=== PATIENT | male | born 1990 | race African-American/Black ===

== ENCOUNTER 2017-06-08 08:41 | Day surgery (SDC) | payer OTHER ==
[2017-06-08] MEDS ORDERED: LACTATED RINGERS 1,000 ML IV ONE (08:50)
[2017-06-08] MEDS ORDERED: LIDOCAINE 1% 50 ML MDV SUBQ ONE ×2 (09:37→10:11)
[2017-06-08] MEDS ORDERED: BUPIVACAINE 0.5%-EPI 1:200000 PF 30 ML VIAL SUBQ ONE ×2 (09:38→10:11)
[2017-06-08 10:52] VITALS: BP 138/87
--- NOTE | 2017-06-08 11:46 | OPERATIVE REPORT ---
DATE OF SURGERY: 06/08/2017 00:00:00 PRE-PROCEDURE DIAGNOSIS: [place] pile/anal skin tag. POST-PROCEDURE DIAGNOSIS: [place] pile/anal skin tag. PROCEDURE: Excision of sentinel pile/anal skin tag. OPERATING SURGEON: Sid Manning MD. ANESTHESIA: General. INDICATION FOR PROCEDURE: The patient is a 27-year-old male who has had a history of rectal bleeding along with pain. This improved and went away several years. He now has noticed a swelling being prese nt in the anal region. On physical exam, it looks like he had a previous anal fissure that is not hea led with the sentinel pile coming off of the side of the fissure. FINDINGS AT SURGERY: The patient had an anal skin tag that excised. PROCEDURE: After informed consent was obtained, the patient was taken to the operating room and place d in the supine position. General laryngeal anesthesia was administered. The patient's anal area was then prepped and draped in the usual sterile fashion. A knife was then used to excise the anal skin t ag at its base. Hemostasis was obtained using electrocautery, and 1% lidocaine with .25% Marcaine had been injected prior to making the incision. Neosporin was then applied. A dry dressing was applied t o the surgical site. The patient was then taken out of the lithology position, awakened, extubated, a nd taken from the operating room in stable condition. ESTIMATED BLOOD LOSS: Minimal. COMPLICATIONS: None. CONDITION OF THE PATIENT AT THE END OF THE PROCEDURE: Stable. SPECIMEN: Anal skin tag. DRAINS OR PACKS: None. CLASSIFICATION OF THE WOUND: Clean, contaminated. JOB #: [id number] EXT JOB #:[id number]
== END 2017-06-08 08:42 | disposition home or self-care (01) ==
LOC: SDS 08:41
PROVIDERS: ATTEND Surgery
PROC: 0DBQXZZ Excision of Anus, External Approach (ICD-10-PCS; principal; 2017-06-08 09:45)
DX: K64.4 Residual hemorrhoidal skin tags (principal)
CPT/HCPCS: 46230; J7120

== ENCOUNTER 2017-08-28 01:39 | Emergency (ER) | payer OTHER ==
[2017-08-28 01:48] VITALS: BP 151/91
--- NOTE | 2017-08-28 02:54 | ED Physician Documentation ---
PD HPI HEENT - Stated complaint Stated Complaint: THROAT SWELLING - Chief complaint Chief Complaint: Heent - History obtained from History obtained from: Patient - History of Present Illness Timing - onset: Yesterday Timing - details: Gradual onset, Constant Pain level now: 8 Location: Right ear, Throat Improves: Nothing Worsens: Swalllowing Associated symptoms: Headache. No: Fever Similar symptoms before: Has not had sx before Recently seen: Not recently seen - Additional information Additional information: c/o 1-2 days of sore throat, right ear pain and right-sided headache Review of Systems Constitutional: denies: Fever, Chills, Sweats Throat: reports: Sore throat Respiratory: denies: Dyspnea, Cough PD PAST MEDICAL HISTORY - Past Medical History Cardiovascular: None Respiratory: None Neuro: None Endocrine/Autoimmune: None GI: None : None HEENT: None Psych: None Musculoskeletal: None Derm: None - Past Surgical History Past Surgical History: No - Present Medications Home Medications: Ambulatory Orders Medication Instructions Recorded Confirmed Multivitamin [Multivitamins] 1 each PO DAILY 06/07/17 06/07/17 HYDROcod/ACETAM 5/325 [[place] 5/325] 1 - 2 ea PO Q6H PRN #15 tablet 08/28/17 - Allergies Allergies/Adverse Reactions: Allergies Allergy/AdvReac Type Severity Reaction Status Date / Time hydromorphone [From Dilaudid] Allergy Anaphylaxis Verified 08/28/17 01:49 nickel Allergy Rash Verified 06/07/17 12:48 - Social History Does the pt smoke?: No Smoking Status: Never smoker Does the pt drink ETOH?: Yes Does the pt have substance abuse?: No - Immunizations Immunizations are current?: Yes - POLST Patient has POLST: No PD ED PE NORMAL - Vitals Vital signs reviewed: Yes - General General: Alert and oriented X 3, No acute distress, Well developed/nourished - HEENT HEENT: Ears normal, Moist mucous membranes - Neck Neck: Supple, no meningeal sign - Respiratory Respiratory: No respiratory distress, Clear bilaterally PD ED PE EXPANDED - HEENT HEENT: Pharyngeal erythema, Tonsillar exudate Results - Vitals Vitals: Vital Signs - 24 hr 08/28/17 01:44 Heart Rate 94 Respiratory 18 Rate Blood Pressure 151/91 H O2 Saturation 97 Oxygen O2 Source Nasal cannula - Labs Labs: Laboratory Tests 08/28/17 03:08 Group A Strep Rapid Negative PD MEDICAL DECISION MAKING - ED course Complexity details: reviewed results, re-evaluated patient, considered differential, d/w patient Departure - Departure Disposition: 01 Home, Self Care Clinical Impression: Pharyngitis Condition: Good Instructions: ED Pharyngitis Viral Report Pending Follow-Up: AUTUMN CADENA [Primary Care Provider] - (2-3 days if not improving) Prescriptions: HYDROcod/ACETAM 5/325 [[place] 5/325] 1 - 2 ea PO Q6H PRN #15 tablet PRN Reason: Pain Forms: Activity restrictions Discharge Date/Time: 08/28/17 03:54
[2017-08-28 03:16] LABS: RAPID STREP SCREEN REAGENT QC YELLOW (YELLOW)
[2017-08-28] MEDS ORDERED: DEXAMETHASONE 10 MG/ML VIAL PO STA (03:38)
[2017-08-28] MEDS ORDERED: HYDROcod/ACETAM 5/325 MG TABLET PO STA (03:38)
[2017-08-28] MEDS ORDERED: DEXAMETHASONE 10 MG/ML VIAL ONE (03:46)
[2017-08-28] MEDS ORDERED: CHERRY SYRUP 10 ML UDC PO ONE (03:46)
[2017-08-28] MEDS ORDERED: HYDROcod/ACETAM 5/325 MG TABLET ONE (03:46)
== END 2017-08-28 03:54 | disposition home or self-care (01) ==
LOC: ED 01:39
DX: J02.9 Acute pharyngitis, unspecified (principal)
CPT/HCPCS: 36415; 87070; 87430; 99283; A9270

== ENCOUNTER 2018-07-11 16:25 | Emergency (ER) | payer OTHER ==
[2018-07-11] MEDS ORDERED: DOXYCYCLINE 100 MG TABLET PO STA (16:56)
[2018-07-11] MEDS ORDERED: ACETAMINOPHEN 325 MG TABLET PO STA (16:56)
[2018-07-11] MEDS ORDERED: NAPROXEN 250 MG TABLET PO STA (16:56)
--- NOTE | 2018-07-11 17:59 | ED Physician Documentation ---
PD HPI LOWER EXT INJURY - Stated complaint Stated Complaint: LEG PX - Chief complaint Chief Complaint: Ext Problem - History obtained from History obtained from: Patient - History of Present Illness PD HPI LOW EXT INJURY LOCATION: Right, Thigh Type of injury: No: Fall, Twist Where injury occurred: Work Timing - onset: How many months ago (initially with tender lump medial thigh a month ago without injury. It has gotten bigger and the lump feeling has extended proximally just under the skin. Had U/S showing solid, not fluid. Is getting referral for MRI. The past few days is having some redness and warmth to the area.) Timing - duration: Months (1) Timing - details: Gradual onset, Still present Worsened by: Moving (walking and pressure on the area hurts.), Palpating Associated symptoms: Swelling, Discolored (redness just the past few days). No : Weakness, Numbness Contributing factors: No: Anticoagulated Similar symptoms before: Has not had sx before (not prior to this past month) Recently seen: Clinic (last week about this, with U/S again without fluid.) Review of Systems Constitutional: denies: Fever, Chills, Myalgias Cardiac: denies: Chest pain / pressure, Palpitations Respiratory: denies: Dyspnea, Cough GI: denies: Nausea, Vomiting Skin: denies: Rash, Lesions Neurologic: denies: Focal weakness, Numbness Endocrine: denies: Weight loss PD PAST MEDICAL HISTORY - Past Medical History Past Medical History: No Cardiovascular: None Respiratory: None Endocrine/Autoimmune: None GI: None : None HEENT: None Psych: None Musculoskeletal: None Derm: None - Past Surgical History Past Surgical History: No - Present Medications Home Medications: Ambulatory Orders Medication Instructions Recorded Confirmed Multivitamin [Multivitamins] 1 each PO DAILY 06/07/17 06/07/17 Doxycycline Monohydrate 100 mg PO BID #14 tablet 07/11/18 HYDROcod/ACETAM 5/325 [[place] 5/325] 1 tab PO Q6H PRN #15 tablet 07/11/18 Naproxen 375 mg PO BID #20 tablet 07/11/18 - Allergies Allergies/Adverse Reactions: Allergies Allergy/AdvReac Type Severity Reaction Status Date / Time hydromorphone [From Dilaudid] Allergy Anaphylaxis Verified 07/11/18 16:42 nickel Allergy Rash Verified 07/11/18 16:42 - Social History Does the pt smoke?: No Smoking Status: Never smoker Does the pt drink ETOH?: Yes Does the pt have substance abuse?: No - Immunizations Immunizations are current?: Yes - POLST Patient has POLST: No PD ED PE NORMAL - Vitals Vital signs reviewed: Yes - General General: Alert and oriented X 3, No acute distress, Well developed/nourished - Respiratory Respiratory: Clear bilaterally - Abdomen Abdomen: Soft, Non tender - Derm Derm: Normal color, Warm and dry, Other (right medial thigh with 4-5 cm area of redness and some warmth, with slight purplish coloring toward the center. There are not any skin lesions. Underlying the skin is lumpy firm tissue in 3-4 lumps that area tender. They are moveable from the muscle layer. No fluctuance. Feel somewhat like lipomas though tender. Bedside U/S did not show any fluid collections. Medial thigh vein with good flow and is compressible. ) - Extremities Extremities: No deformity, No edema, No calf tenderness / cord Results - Vitals Vitals: Oxygen O2 Source Room air - Rads (name of study) extremity CT Radiology: Prelim report reviewed PD MEDICAL DECISION MAKING - ED course Complexity details: considered differential (interesting progression of what feels like lipoma, now with redness and worse tenderness. Awaiting referral for MRI. Consider CT for preliminary info, though MRI is likely still going to be useful. Can at least exclude significant underlying extension/other process. ), d/w patient - Sepsis Event Vital Signs: Oxygen O2 Source Room air Departure - Departure Disposition: 01 Home, Self Care Clinical Impression: Lump of right thigh, Cellulitis of thigh Condition: Stable Record reviewed to determine appropriate education?: Yes Instructions: ED Infec Skin Cellulitis Follow-Up: AUTUMN CADENA [Primary Care Provider] - Prescriptions: Doxycycline Monohydrate 100 mg PO BID #14 tablet HYDROcod/ACETAM 5/325 [[place] 5/325] 1 tab PO Q6H PRN #15 tablet PRN Reason: Pain Naproxen 375 mg PO BID #20 tablet Comments: The CT scan just characterized it as soft tissue thickening and edema in that area. The underlying tissue of bone and muscle appeared normal. They did suggest MRI may be more definitive. There are no deeper abscesses or fluid collections seen. At this point it feels like fatty tissue thickening such as a lipoma. Sometimes those can have infection and I think that is the discoloration and warmth of it now. We will treated with some anti- inflammatories and add Tylenol or hydrocodone if needed for pain. I would go with doxycycline antibiotic for the new discoloration that feels like a skin infection. Follow-up with your primary care regarding further characterization , such as MRI or biopsy, of the lumps under the skin. Forms: Activity restrictions Discharge Date/Time: 07/11/18 18:38
--- NOTE | 2018-07-11 18:07 | CT Report ---
Reason: right medial thigh soft tissue lump/tender Procedure Date: 07/11/2018 Accession Number: [id number] / [id number] Procedure: CT - Lower Extremity Right W/O CPT Code: FULL RESULT: EXAM: RIGHT LOWER EXTREMITY CT WITHOUT CONTRAST EXAM DATE: 07/11/2018 05:43 PM. CLINICAL HISTORY: Right medial thigh soft tissue lump/tender. COMPARISON: None. TECHNIQUE: Thin-section axial images were acquired of the lower extremity from the mid-to distal femoral diaphysisto the proximal tibial metaphysis without contrast. Post-processing: Coronal and sagittal reformats. Other: None. In accordance with CT protocol optimization, one or more of the following dose reduction techniques were utilized for this exam: automated exposure control, adjustment of mA and/or KV based on patient size, or use of iterative reconstructive technique. FINDINGS: Bones: No fracture or bone lesion. Joints: Joint spaces at the knee maintained. Mild lateral patellar subluxation. Minimal joint fluid. Musculature: No fatty atrophy. Evaluation for muscle edema limited on CT. Other: Mild subcutaneous edema over the medial aspect distal thigh and knee. Mild skin thickening present at the level of the distal thigh. Mild subcutaneous edema over the anterior aspect of the patella and patellar tendon. Evaluation for fluid collection or mass significantly limited in the absence of IV contrast. IMPRESSION: 1. Mild subcutaneous edema over the medial aspect distal thigh and knee with mild skin thickening, nonspecific. 2. Significantly limited evaluation for fluid collection or mass in the absence of IV contrast. 3. If it would be of clinical utility, MRI with IV contrast could be performed for further characterization. [facility]
[2018-07-11 18:38] VITALS: BP 118/74
== END 2018-07-11 18:38 | disposition home or self-care (01) ==
LOC: ED 16:25
DX: R22.41 Localized swelling, mass and lump, right lower limb (principal); L03.115 Cellulitis of right lower limb
CPT/HCPCS: 73700; 99283; A9270

== ENCOUNTER 2018-09-12 08:45 | Emergency (ER) | payer OTHER ==
[2018-09-12] MEDS ORDERED: IBUPROFEN 800 MG TABLET PO STA (09:57)
--- NOTE | 2018-09-12 10:01 | ED Physician Documentation ---
History of Present Illness - Stated complaint Stated Complaint: MALE - Chief complaint Chief Complaint: Abd Pain - Additonal information Additional information: hx from pt 28 AD male same sex partner to ED with first left now kimberly testicular pain waxing waning but pretty much always there for a month and suprapubic discomfort as well no dysuria but hesitancy no dc no lesions no fever chills Review of Systems Constitutional: denies: Fever, Chills Cardiac: denies: Chest pain / pressure Respiratory: denies: Dyspnea GI: reports: Abdominal Pain : reports: Hesitancy, Testicular pain. denies: Discharge Endocrine: denies: Easy bruising / bleeding Immunocompromised: denies: Immunocompromised PD PAST MEDICAL HISTORY - Past Medical History Cardiovascular: None Respiratory: None Endocrine/Autoimmune: None GI: None : None HEENT: None Psych: None Musculoskeletal: None Derm: None - Past Surgical History Past Surgical History: No - Present Medications Home Medications: Ambulatory Orders Medication Instructions Recorded Confirmed Multivitamin [Multivitamins] 1 each PO DAILY 06/07/17 06/07/17 Doxycycline Hyclate 100 mg PO BID #20 capsule 09/12/18 - Allergies Allergies/Adverse Reactions: Allergies Allergy/AdvReac Type Severity Reaction Status Date / Time hydromorphone [From Dilaudid] Allergy Anaphylaxis Verified 09/12/18 08:54 nickel Allergy Rash Verified 09/12/18 08:54 - Social History Does the pt smoke?: No Smoking Status: Never smoker Does the pt drink ETOH?: Yes Does the pt have substance abuse?: No - Immunizations Immunizations are current?: Yes - POLST Patient has POLST: No PD ED PE NORMAL - Vitals Vital signs reviewed: Yes - Cardiac Cardiac: RRR - Respiratory Respiratory: No respiratory distress, Clear bilaterally - Abdomen Abdomen: Soft, Other (suprapubic TTP s peritineal signs, no focal RLQ pain or TTP) - Male Male : Other (circ, testes desc nl lie, + cremasteric, no mass, kimberly mildly and diffusely TTP, no lesions, no dc, pt very fearful of STD swab but after I explained the importance and promised to be as quick and gentle and possible he agreed and allowed swab to be done) - Derm Derm: Normal color Results - Vitals Vitals: Vital Signs - 24 hr 09/12/18 09/12/18 08:52 12:12 Temperature 36.0 C L 36.5 C Heart Rate 88 76 Respiratory 15 18 Rate Blood Pressure 145/99 H 132/98 H O2 Saturation 98 100 Oxygen O2 Source Room air - Labs Labs: Laboratory Tests 09/12/18 09:50 Urine Color YELLOW Urine Clarity CLEAR Urine pH 7.5 Ur Specific [place] 1.020 Urine Protein NEGATIVE Urine Glucose (UA) NEGATIVE Urine Ketones NEGATIVE Urine Occult Blood NEGATIVE Urine Nitrite NEGATIVE Urine Bilirubin NEGATIVE Urine Urobilinogen 0.2 (NORMAL) Ur Leukocyte Esterase NEGATIVE Ur Microscopic Review NOT INDICATED Urine Culture Comments NOT INDICATED - Rads (name of study) abd sono Radiology: See rad report (no evidence of appendicitis) bladder Radiology: See rad report (nl jets, no stones, nl prostate) testicular Radiology: See rad report (L varicocele, otherwise nl) Departure - Departure Disposition: 01 Home, Self Care Clinical Impression: Orchitis Condition: Good Instructions: ED Orchitis Prescriptions: Doxycycline Hyclate 100 mg PO BID #20 capsule Comments: There was no urine infection The ultrasounds were reassuring - no appendicitis, normal bladder without stones, normal prostate, and normal testicles without tumors, abscess or impaired blood flow. I recommend a course of antibiotics to cover common urinary and testicular infections. The culture results will take several days to be resulted - you can call the ER for the results or get the results from your PMD at [facility] and supportive briefs "tight whities" and cool compresses will help ease the pain Forms: Activity restrictions Discharge Date/Time: 09/12/18 13:26
[2018-09-12 10:20] LABS: BILIRUBIN,URINE NEGATIVE (NEGATIVE); GLUCOSE, URINE (UA) NEGATIVE (NEGATIVE); KETONES,URINE (UA) NEGATIVE (NEGATIVE); LEUKOCYTE ESTERASE, URINE NEGATIVE (NEGATIVE); NITRITE,URINE NEGATIVE (NEGATIVE); OCCULT BLOOD,URINE NEGATIVE (NEGATIVE); PH,URINE 7.5 PH (5.0-7.5); PROTEIN,URINE NEGATIVE (NEGATIVE); UROBILINOGEN,URINE 0.2 (NORMAL) E.U./dL (NORMAL)
[2018-09-12 10:22] LABS: CLARITY,URINE CLEAR (CLEAR)
--- NOTE | 2018-09-12 12:08 | Ultrasound Report ---
Reason: rlq and bladder please Procedure Date: 09/12/2018 Accession Number: [id number] / [id number] Procedure: US - Abdomen Limited CPT Code: FULL RESULT: EXAM: ABDOMEN ULTRASOUND LIMITED EXAM DATE: 09/12/2018 11:50 AM. CLINICAL HISTORY: Right lower quadrant pain COMPARISON: None. TECHNIQUE: Real-time scanning was performed of the right lower quadrant with static images obtained. FINDINGS: The appendix is not seen. No cystic or solid mass, abnormal collections, free fluid, or thickened bowel wall seen. IMPRESSION: Negative right lower quadrant ultrasound. The appendix is not seen. [facility]
[2018-09-12 12:13] VITALS: BP 132/98
--- NOTE | 2018-09-12 12:15 | Ultrasound Report ---
Reason: bladder pain Procedure Date: 09/12/2018 Accession Number: [id number] / [id number] Procedure: US - Bladder CPT Code: FULL RESULT: EXAM: PELVIS ULTRASOUND, LIMITED EXAM DATE: 09/12/2018 11:25 AM. CLINICAL HISTORY: Bladder pain. COMPARISON: None. TECHNIQUE: Real-time scanning was performed with static images obtained. FINDINGS: Bilateral ureteral jets are present. Prevoid bladder volume 234 cc, no post void residual. No bladder masses, stones, debris, or other bladder finding. Prostate 3.6 x 3.2 x 3.0 cm, volume 18 cc, within normals limits for size. IMPRESSION: Negative bladder ultrasound. [facility]
--- NOTE | 2018-09-12 12:18 | Ultrasound Report ---
Reason: charles testicular pain int for a month rad to suprapu Procedure Date: 09/12/2018 Accession Number: [id number] / [id number] Procedure: US - Testicle w/Doppler CPT Code: FULL RESULT: EXAM: SCROTAL ULTRASOUND EXAM DATE: 09/12/2018 11:10 AM. CLINICAL HISTORY: Charles testicular pain for a month COMPARISON: None. TECHNIQUE: Real-time scanning was performed with static images obtained. Color-flow images were utilized. FINDINGS: Right: Testis: 5 x 2.7 x 3.4 cm. Normal size and echotexture. No mass, calcification, or abnormal blood flow. Epididymis: 1.2 x 1 x 1.2 cm. Normal size and echotexture. No mass or abnormal blood flow. Hydrocele: None. Varicocele: None. Left: Testis: 4.7 x 2.8 x 3.1 cm. Normal size and echotexture. No mass, calcification, or abnormal blood flow. Epididymis: 1.6 x 0.8 x 1.3 cm. Normal size and echotexture. No mass or abnormal blood flow. Hydrocele: None. Varicocele: Yes IMPRESSION: Left varicocele. Otherwise normal scrotal ultrasound. [facility]
== END 2018-09-12 13:26 | disposition home or self-care (01) ==
LOC: ED 08:45
DX: N45.2 Orchitis (principal); I86.1 Scrotal varices
CPT/HCPCS: 76705; 76857; 76870; 81003; 87491; 87591; 93975; 99283; A9270; 81001; 87086